=== PATIENT | female | born 1960 | race American Indian/Alaskan Native ===

== ENCOUNTER 2016-11-15 11:43 | Outpatient (CLI) | payer MEDICARE ==
--- NOTE | 2016-11-15 14:04 | Mammography Report ---
Bilateral digital screen mammography with CAD. Findings: There is an irregular parenchymal asymmetry in the right breast at the 2:30 position, approximately 10 cm from the nipple. There are scattered fibroglandular densities elsewhere in each breast. No suspicious microcalcifications. Impression: Irregular right parenchymal asymmetry. BI-RADS code: 0. Recommendation: Spot compression images, 90 degree view, and targeted ultrasound.
== END 2016-11-15 11:44 | disposition home or self-care (01) ==
LOC: MAMMO 11:43
PROVIDERS: ATTEND Family Medicine
DX: Z12.31 Encounter for screening mammogram for malignant neoplasm of breast (principal); I10 Essential (primary) hypertension
CPT/HCPCS: 77067; G0202